=== PATIENT | male | born 1975 | race African-American/Black ===

== ENCOUNTER 2023-08-28 16:26 | Emergency (ER) | payer OTHER ==
[~2023-08-28] VITALS: Ht 177.8 cm; Wt 137.0 kg
[2023-08-28 16:35] VITALS: O2SAT 99
[2023-08-28] MEDS: MAGNESIUM/ALUMINUM HYDROXIDE/SIMETHICONE 30ML UDC PO ONE (18:32)
[2023-08-28 18:42] LABS: BASOPHILS % 0.7 % (0.0-2.0); EOSINOPHILS % 0.2 % (0.0-5.0); HEMATOCRIT. 44.2 % (42.0-52.0); HEMOGLOBIN. 14.6 g/dL (14.0-18.0); LYMPHOCYTES % 36.2 % (20.0-50.0); MEAN CORPUSCULAR HEMOGLOBIN 27.7 pg (28.0-32.0); MEAN CORPUSCULAR HGB CONC 33.1 g/dL (31.0-37.0); MEAN CORPUSCULAR VOLUME 83.8 fL (80.0-94.0); MEAN PLATELET VOLUME 9.9 fl (7.4-10.4); MONOCYTES % 11.9 % (2.0-8.0); PLATELET 276 x1000/uL (130-400); RED BLOOD CELL COUNT 5.27 mill/uL (4.7-6.1); RED CELL DISTRIBUTION WIDTH 15.4 % (11.6-14.6); WHITE BLOOD COUNT 6.9 x1000/uL (4.5-11.0)
[2023-08-28 18:47] LABS: CHLORIDE 102 mEq/L (98-107); POTASSIUM 3.6 mEq/L (3.5-5.1); SODIUM 135 mEq/L (136-145)
[2023-08-28 18:48] LABS: CALCIUM 9.6 mg/dL (8.7-10.4); CARBON DIOXIDE 28 mEq/L (21-32)
[2023-08-28 18:53] LABS: CREATININE 0.9 mg/dL (0.6-1.3); GLUCOSE 96 mg/dL (70-105); UREA NITROGEN BLOOD 10 mg/dL (9-23)
[2023-08-28 18:54] LABS: TROPONIN I HIGH SENSITIVITY 4 ng/L (3.0-53)
[2023-08-28 18:55] LABS: ALANINE AMINOTRANSFERASE 39 IU/L (10-49); ALBUMIN 4.2 g/dL (3.2-4.8); ASPARTATE AMINOTRANSFERASE 33 IU/L (<34); BILIRUBIN DIRECT 0.1 mg/dL (<=3.0); BILIRUBIN TOTAL 0.4 mg/dL (0.1-1.0); PROTEIN TOTAL 7.6 g/dL (6.0-8.3)
[2023-08-28] MEDS ORDERED: FAMO-135 MT (19:12)
[2023-08-28] MEDS ORDERED: MAGNESIUM/ALUMINUM HYDROXIDE/SIMETHICONE 30ML UDC PO ONE (19:30)
[2023-08-28 20:56] LABS: TROPONIN I HIGH SENSITIVITY 5 ng/L (3.0-53)
[2023-08-28] MEDS: MONTELUKAST SODIUM 10MG TABLET PO ONE (21:28)
[2023-08-28 21:29] VITALS: BP 159/91; PULSE 89; RESP 16; TEMP 98.5
== END 2023-08-28 21:30 | disposition home or self-care (01) ==
LOC: ER 16:26
DX: K21.9 Gastro-esophageal reflux disease without esophagitis (principal); R07.89 Other chest pain; J45.909 Unspecified asthma, uncomplicated; I10 Essential (primary) hypertension
CPT/HCPCS: 36415; 71045; 80048; 80076; 83880; 84484; 85025; 93005; 99285